=== PATIENT | male | born 1960 | race Caucasian/White ===

== ENCOUNTER 2019-07-27 15:24 | Inpatient (IN) | payer OTHER ==
[~2019-07-27] VITALS: Ht 185.4 cm; Wt 105.2 kg
[2019-07-27] MEDS ORDERED: ASPIRIN 325 MG TABLET PO STA (15:33)
--- NOTE | 2019-07-27 15:43 | NUR ---
PRE-ALERT CODE CARDIAC CALLED @1516 VIA [facility], PT ARRIVAL @1524. PT HAD SUDDEN ONSET CP TODAY @1430, ST ELEV IN V1-4, ASA 325 AND NITRO 0.8 GIVEN IN ROUTE. PT DIAPHORETIC, STATES 1X EPISODE VOMITING BEFORE EMS ARRIVAL. PADS AND MONITOR APPLIED, REPEAT EKG DONE. DR BHAKTA AT BEDSIDE. CONSENT SIGNED. PT HX TN X3, HTN/HLD, STATES HE RAN OUT OF HIS MEDICATIONS 1 WEEK AGO. 20 L AC AND 18 R AC, IVF TKO RUNNING. DELAY TO INSOLE DEPARTMENT WORKER DUE TO 2X PTS CURRENTLY ON TABLE, DR. BHAKTA AWARE, INSOLE DEPARTMENT WORKER PREPARED TO RECIEVE PT MARIE. AWATING TRANSFER TO INSOLE DEPARTMENT WORKER.
[2019-07-27 15:45] LABS: BASOPHILS # (AUTO) 0.03 x10^3/uL (0-0.1); BASOPHILS % (AUTO) 0 % (0-1); EOSINOPHILS # (AUTO) 0.17 x10^3/uL (0-0.4); EOSINOPHILS % (AUTO) 1 % (1-7); LYMPHOCYTES # (AUTO) 2.35 x10^3/uL (1-3.4); LYMPHOCYTES % (AUTO) 20 % (22-44); MD NO; MEAN CORPUSCULAR HGB CONC 32.9 g/dL (33.2-36.2); MEAN PLATELET VOLUME 8.3 fL (7.4-10.4); MONOCYTES # (AUTO) 0.59 x10^3/uL (0.2-0.8); MONOCYTES % (AUTO) 5 % (2-9); NEUTROPHILS # (AUTO) 8.46 x10^3/uL (1.8-6.8); NEUTROPHILS % (AUTO) 73 % (42-75); PLATELET COUNT 296 x10^3/uL (130-400); RED BLOOD COUNT 5.54 x10^6/uL (4.38-5.82); RED CELL DISTRIBUTION WIDTH 13.3 % (9.4-14.8)
--- NOTE | 2019-07-27 15:47 | NUR ---
PT TO CHIEF CONSTRUCTION INSPECTOR
[2019-07-27] MEDS ORDERED: FENTANYL PF 100 MCG/2ML ONE (15:48)
[2019-07-27] MEDS ORDERED: MIDAZOLAM 1 MG/ML, 5ML ONE (15:48)
[2019-07-27] MEDS ORDERED: LIDOCAINE 2%, 20ML ONE (15:49)
[2019-07-27] MEDS ORDERED: HEPARIN 1,000 UNITS/ML, 10ML ONE (15:49)
[2019-07-27] MEDS ORDERED: BIVALIRUDIN 250 MG ONE ×2 (15:49→16:31)
[2019-07-27 15:51] LABS: INTERNATIONAL NORMALIZED RATIO 1.04 (0.93-1.1)
[2019-07-27 15:56] LABS: TROPONIN I < 0.015 ng/mL (0.000-0.045)
[2019-07-27] MEDS ORDERED: SODIUM CHLORIDE FLUSH 10ML SYR IVF PRN (16:00)
[2019-07-27] MEDS ORDERED: ASPIRIN 325 MG TABLET EC PO ONE (16:00)
--- NOTE | 2019-07-27 16:08 | NUR ---
LATE ENTRY: PT TO BRANCH OPERATIONS MANAGER @3021, FAMILY AT BEDSIDE, ESCORTED TO CCU WAITING ROOM. REPORT TO BRANCH OPERATIONS MANAGER RN
--- NOTE | 2019-07-27 16:16 | NUR ---
LATE NOTE: THIS TECH DID EKG, ASSISTED RN WITH PREP FOR MEN'S LOCKER ROOM ATTENDANT, AND TRANSPORTED PT
[2019-07-27] MEDS ORDERED: PRASUGREL 10 MG TABLET ONE (16:31)
[2019-07-27] MEDS: BIVALIRUDIN 250 MG in SODIUM CHLORIDE 0.9% 50 ML IV SCH ×2 (18:24→20:15)
[2019-07-27] MEDS: METOPROLOL TARTRATE 25 MG TAB PO SCH (21:29)
[2019-07-27] MEDS: ATORVASTATIN 80 MG TABLET PO SCH (21:29)
[2019-07-27] MEDS: LISINOPRIL 5 MG TABLET PO SCH (21:30)
[2019-07-28 04:38] LABS: ANION GAP 6 mmol/L (5-15); CHLORIDE 112 mmol/L (98-107); CREATININE 0.87 mg/dL (0.7-1.3)
[2019-07-28] MEDS: METOPROLOL TARTRATE 25 MG TAB PO SCH ×2 (08:26→20:18)
[2019-07-28] MEDS: LISINOPRIL 5 MG TABLET PO SCH (08:26)
[2019-07-28] MEDS: ASPIRIN 325 MG TABLET EC PO SCH (08:26)
[2019-07-28] MEDS: PRASUGREL 10 MG TABLET PO SCH (08:26)
[2019-07-28] MEDS ORDERED: METO25TA35 PO (10:45)
[2019-07-28] MEDS ORDERED: LISI5TAB7 PO (10:45)
[2019-07-28] MEDS ORDERED: ATOR-2 PO (10:45)
[2019-07-28] MEDS ORDERED: CLOP75TA PO (10:45)
[2019-07-28 13:29] VITALS: BP 114/70
[2019-07-28] MEDS ORDERED: COLCHICINE 0.6 MG CAPSULE PO PRN (20:00)
[2019-07-28 20:05] VITALS: BP 126/83
[2019-07-28] MEDS: ATORVASTATIN 80 MG TABLET PO SCH (20:18)
[2019-07-28] MEDS ORDERED: LISINOPRIL 5 MG TABLET PO SCH (21:00)
[2019-07-28] MEDS ORDERED: ATORVASTATIN 80 MG TABLET PO SCH (21:00)
[2019-07-29 05:19] VITALS: BP 122/77
[2019-07-29 08:12] VITALS: BP 134/86
[2019-07-29] MEDS ORDERED: METO25TA35 PO ×2 (08:15)
[2019-07-29] MEDS ORDERED: ATOR-2 PO (08:15)
[2019-07-29] MEDS ORDERED: PRAS10TA4 PO (08:15)
[2019-07-29] MEDS ORDERED: COLC0.6C3 PO (08:15)
[2019-07-29] MEDS ORDERED: LISI5TAB7 PO (08:15)
[2019-07-29] MEDS ORDERED: ASPI81TA45 PO (08:16)
[2019-07-29] MEDS ORDERED: METO25TA2 PO (08:26)
[2019-07-29] MEDS: PRASUGREL 10 MG TABLET PO SCH (09:24)
[2019-07-29] MEDS: ASPIRIN 325 MG TABLET EC PO SCH (09:24)
[2019-07-29] MEDS: METOPROLOL TARTRATE 25 MG TAB PO SCH (09:25)
== END 2019-07-29 11:10 | disposition home or self-care (01) | DRG 246 ==
LOC: EDBD 15:24 → ED 15:50 → EDIP 15:55 → CCU 16:41 → 5SO 07-28 18:16 → DCLOUNGE 07-29 10:55
PROVIDERS: ADMIT Internal Medicine Cardiovascular Disease; ATTEND Internal Medicine Cardiovascular Disease
PROC: 027037Z Dilation of Coronary Artery, One Artery with Four or More Drug-eluting Intraluminal Devices, Percutaneous Approach (ICD-10-PCS; principal; 2019-07-27)
PROC: 4A023N7 Measurement of Cardiac Sampling and Pressure, Left Heart, Percutaneous Approach (ICD-10-PCS; 2019-07-27)
PROC: B2111ZZ Fluoroscopy of Multiple Coronary Arteries using Low Osmolar Contrast (ICD-10-PCS; 2019-07-27)
PROC: B2151ZZ Fluoroscopy of Left Heart using Low Osmolar Contrast (ICD-10-PCS; 2019-07-27)
DX: I21.09 ST elevation (STEMI) myocardial infarction involving other coronary artery of anterior wall (principal); M10.9 Gout, unspecified; E78.00 Pure hypercholesterolemia, unspecified; E78.5 Hyperlipidemia, unspecified; I10 Essential (primary) hypertension; I25.10 Atherosclerotic heart disease of native coronary artery without angina pectoris; I25.5 Ischemic cardiomyopathy; E66.9 Obesity, unspecified; I95.9 Hypotension, unspecified; I25.2 Old myocardial infarction; Z87.891 Personal history of nicotine dependence; Z82.49 Family history of ischemic heart disease and other diseases of the circulatory system; Z79.899 Other long term (current) drug therapy
CPT/HCPCS: 36415; 93458; 99285; J3490; 71045; 80047; 80048; 84484; 85025; 85610; 85730; 87081; 93005; 93306; 99156; 99157; C1760; C1769; C1894; G0378; J0583; J1644; J2250; J3010; C1725; C1874; C1887; Q9967